=== PATIENT | male | born 1980 | race Caucasian/White ===

== ENCOUNTER 2023-07-19 09:03 | Emergency (ER) | payer OTHER, SELFPAY ==
[2023-07-19] VITALS (40 sets, daily range): BP systolic 93–175; BP diastolic 67–119; PULSE 104–135; RESP 4–31; TEMP 36.6; O2SAT 96–120; BMI 36.6
--- NOTE | 2023-07-19 09:22 | XR_ITS ---
[facility] [id number] Patient Name: ADRIENNE BOWMAN MRN: [id number] date: 1980 Sex: M Assigned Patient Location: ER Current Patient Location: ED.MAIN Accession/Order Number: [id number] Exam Date: 07/19/2023 09:48 Report Date: 07/19/2023 10:01 At the request of: NESTOR RICHMOND Procedure: XR chest 1V EXAM: XR chest 1V HISTORY: Tachycardia COMPARISON: None TECHNIQUE: AP view the chest was obtained with portable technique at 0944 hours. FINDINGS: Heart and mediastinal contours are unremarkable in appearance. No acute infiltrate or consolidations are seen. No obvious pneumothorax. Slight convexity of the mid dorsal spine to the right. XR/XR chest 1V IMPRESSION: No acute process seen in the chest. Electronically authenticated by: ISABELLA JUDD Date: 07/19/2023 10:01
--- NOTE | 2023-07-19 09:22 | ECG_ITS ---
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
--- NOTE | 2023-07-19 09:29 | ED.ALCOHOL1 ---
HPI - Alcohol General Chief Complaint: Alcohol Stated Complaint: ALCOHOL WITHDRAWAL Time Seen by Provider: 07/19/23 09:05 Source: patient Mode of arrival: Wheelchair Limitations: no limitations History of Present Illness HPI narrative: 43-year-old male presents to ED for nausea vomiting and feeling shaky. He has been on a 5-day alcohol nelson. He drank last night and started vomiting last night. He feels like he might be going into withdrawal. He has not had fever or hematemesis. Related Data Previous Rx's Medication Instructions Recorded lorazepam 1 mg tablet (Ativan) 1 mg PO Q8H PRN alcohol withdrawal 07/19/23 5 days #14 tabs promethazine 25 mg tablet 25 mg PO Q6H PRN nausea and 07/19/23 vomiting #14 tabs Allergies Allergy/AdvReac Type Severity Reaction Status Date / Time Iodinated Contrast Media Allergy Unknown Verified 07/19/23 09:08 Review of Systems ROS Narrative A ten point review of systems is negative except as noted above. PFSH PFSH Social History Smoking status: Current every day smoker Exam Narrative Exam Narrative: Nurses note and vital signs reviewed and patient is not hypoxic. General: The patient appears no apparent respiratory distress. Skin: Warm, dry, no pallor noted. There is no rash noted. Head: Normocephalic, atraumatic Eye: Normal conjunctiva, no drainage Ears, Nose, Mouth, and Throat: oral mucosa is slightly dry Cardiovascular: Regular Rate and Rhythm, tachycardic Respiratory: Patient is in no distress, no accessory muscle use, lungs are clear to auscultation, no wheezing, rales or rhonchi Back: non-tender GI: Soft and nontender Musculoskeletal: The patient has no evidence of calf tenderness, no pitting edema, symmetrical pulses noted bilaterally Neurological: A&O x4, normal speech, minimal tremors Psychiatric: Cooperative Constitutional Vital Signs, click to edit/add: Last Vital Signs Temp 97.8 F 07/19/23 09:08 Pulse 114 H 07/19/23 12:50 Resp 15 07/19/23 12:50 BP 151/89 H 07/19/23 12:46 Pulse Ox 97 07/19/23 12:50 O2 Del Method Room Air 07/19/23 09:08 Course Vital Signs Vital signs: Vital Signs Temperature 97.8 F 07/19/23 09:08 Pulse Rate 121 H 07/19/23 09:08 Respiratory Rate 14 07/19/23 09:08 Blood Pressure 132/87 07/19/23 09:08 Pulse Oximetry 98 07/19/23 09:08 Oxygen Delivery Method Room Air 07/19/23 09:08 Temperature 97.8 F 07/19/23 09:08 Pulse Rate 114 H 07/19/23 12:50 Respiratory Rate 15 07/19/23 12:50 Blood Pressure 151/89 H 07/19/23 12:46 Pulse Oximetry 97 07/19/23 12:50 Oxygen Delivery Method Room Air 07/19/23 09:08 MDM - Alcohol MDM Narrative Medical decision making narrative: The patient presented with mild alcohol withdrawal. He was given IV fluids and IV Ativan and Zofran. Blood work is nonspecific. He is able to be discharged home. At this point I do not feel that he needs to be admitted to the hospital. Treatment diagnosis and follow-up were discussed with the patient. Heart rate has come down with IV fluids and Ativan. Differential Diagnosis Differential diagnosis: Likely alcohol intoxication and alcohol withdrawal syndrome Lab Data Attestation: I reviewed the patient's lab results. Labs: Lab Results 07/19/23 07/19/23 Range/Units 09:39 10:50 WBC 13.3 H (4.0-11.0) 10^3/uL RBC 5.34 (4.70-6.10) 10^6/uL Hgb 17.5 (14.0-18.0) g/dL Hct 48.9 (42.0-54.0) % MCV 91.6 (80.0-94.0) fL MCH 32.8 (25.9-34.0) pg MCHC 35.8 H (29.9-35.2) g/dL RDW 12.1 (11.0-15.0) % Plt Count 307 (150-450) 10^3/uL MPV 8.8 L (9.5-13.5) fL Neut % (Auto) 77.1 H (43.0-75.0) % Lymph % (Auto) 13.3 L (20.5-60.0) % [place] % (Auto) 6.3 (1.7-12.0) % Eos % (Auto) 1.5 (0.9-7.0) % Baso % (Auto) 1.4 (0.2-2.0) % Neut # (Auto) 10.2 H (1.4-6.5) 10^3/uL Lymph # (Auto) 1.8 (1.2-3.8) 10^3/uL [place] # (Auto) 0.8 (0.3-0.8) 10^3/uL Eos # (Auto) 0.2 (0.0-0.7) 10^3/uL Baso # (Auto) 0.2 H (0.0-0.1) 10^3/uL Abs Immat Gran (auto) 0.05 H (0.00-0.03) 10^3/uL Imm/Tot Granulo (auto) 0.4 (0.0-0.5) % Sodium 136 (136-145) mmol/L Potassium 4.6 (3.5-5.1) mmol/L Chloride 97 L (98-107) mmol/L Carbon Dioxide 25.8 (21.0-32.0) mmol/L Anion Gap 17.8 BUN 14.0 (7.0-18.0) mg/dL Creatinine 0.73 (0.70-1.30) mg/dL Est GFR ( Amer) >60 (>=60) Est GFR (Non-Af Amer) >60 (>=60) BUN/Creatinine Ratio 19.2 Glucose 288 H (74-106) mg/dL Calcium 9.2 (8.5-10.1) mg/dL Total Bilirubin 0.8 (0.2-1.0) mg/dL Direct Bilirubin 0.1 (0.0-0.2) mg/dL AST 37 (15-37) U/L ALT 43 (16-63) U/L Alkaline Phosphatase 98 (46-116) U/L Troponin I High Sens 11.3 (4.0-76.1) pg/mL Total Protein 7.9 (6.4-8.2) g/dL Albumin 3.8 (3.4-5.0) g/dL Globulin 4.1 g/dL Albumin/Globulin Ratio 0.9 Urine Color Yellow (YELLOW) Urine Clarity Clear (CLEAR) Urine pH 6.5 (5.0-9.0) Ur Specific [place] >=1.030 A (1.005-1.025) Urine Protein >=300 A (NEG/TRACE) mg/dL Urine Glucose (UA) 250 A (NEGATIVE) mg/dL Urine Ketones 15 A (NEGATIVE) mg/dL Urine Occult Blood Moderate A (NEGATIVE) Urine Nitrite Negative (NEGATIVE) Urine Bilirubin Negative (NEGATIVE) Urine Urobilinogen 1.0 (0.2-1.0) EU/dL Ur Leukocyte Esterase Negative (NEGATIVE) Urine RBC 10-20 A (0-2) #/HPF Urine WBC 2-5 A (NONE SEEN) #/HPF Ur Squamous Epith Cells Many A (NONE/RARE) #/LPF Urine Crystals None seen (None Seen) #/HPF Urine Bacteria Trace A (NONE SEEN) #/HPF Urine Casts None seen (NONE SEEN) #/LPF Urine Mucus Large A (NONE SEEN) Ethanol Quant 25 mg/dL Imaging Data Chest x-ray: Radiologist's impression: ITS Impressions Chest X-Ray 07/19/23 09:22 IMPRESSION: No acute process seen in the chest. Electronically authenticated by: ISABELLA JUDD Date: 07/19/2023 10:01 ECG Data Attestation: I personally reviewed and interpreted this ECG as follows: (EKG on my interpretation shows sinus rhythm with a rate of 121.) Discharge Plan Discharge Chief Complaint: Alcohol Clinical Impression: Alcohol withdrawal syndrome Patient Disposition: Home, Self-Care Time of Disposition Decision: 12:56 Condition: Good Mode of Transportation: Private Vehicle Prescriptions / Home Meds: New lorazepam [Ativan] 1 mg tablet 1 mg PO Q8H PRN (Reason: alcohol withdrawal) 5 Days Qty: 14 0RF promethazine 25 mg tablet 25 mg PO Q6H PRN (Reason: nausea and vomiting) Qty: 14 0RF Instructions: Abuse of Alcohol (ED), Alcohol Withdrawal (ED) Stand Alone Forms: Portal Instructions Referrals: Physician,Non-Staff, MD [Primary Care Provider] - 1 week
[2023-07-19] MEDS: 0.9 % SODIUM CHLORIDE 1,000 ML 1000 ML IV ×2 (09:42→11:19)
[2023-07-19] MEDS: LORAZEPAM 2 MG/ML 1 ML VIAL 1 MG IV ×2 (09:43→11:19)
[2023-07-19] MEDS: ONDANSETRON PF 4 MG/2 ML VIAL IV ×3 (09:43→12:44)
[2023-07-19 09:53] LABS: Basophils Absolute Auto 0.2 10^3/uL (0.0-0.1); Basophils Percent Auto 1.4 % (0.2-2.0); Eosinophils Absolute Auto 0.2 10^3/uL (0.0-0.7); Eosinophils Percent Auto 1.5 % (0.9-7.0); Hematocrit 48.9 % (42.0-54.0); Hemoglobin 17.5 g/dL (14.0-18.0); Immature Granulocytes Abs Auto 0.05 10^3/uL (0.00-0.03); Immature Granulocytes Pct Auto 0.4 % (0.0-0.5); Lymphocytes Absolute Auto 1.8 10^3/uL (1.2-3.8); Lymphocytes Percent Auto 13.3 % (20.5-60.0); Mean Corpuscular HGB Conc 35.8 g/dL (29.9-35.2); Mean Corpuscular Hemoglobin 32.8 pg (25.9-34.0); Mean Corpuscular Volume 91.6 fL (80.0-94.0); Mean Platelet Volume 8.8 fL (9.5-13.5); Monocytes Absolute Auto 0.8 10^3/uL (0.3-0.8); Monocytes Percent Auto 6.3 % (1.7-12.0); Neutrophils Absolute Auto 10.2 10^3/uL (1.4-6.5); Neutrophils Percent Auto 77.1 % (43.0-75.0); Platelet Count 307 10^3/uL (150-450); Red Blood Count 5.34 10^6/uL (4.70-6.10); Red Cell Distribution Width 12.1 % (11.0-15.0); White Blood Count 13.3 10^3/uL (4.0-11.0)
[2023-07-19 09:57] LABS: Anion Gap 17.8; BUN Creatinine Ratio 19.2; Calcium 9.2 mg/dL (8.5-10.1); Carbon Dioxide 25.8 mmol/L (21.0-32.0); Chloride 97 mmol/L (98-107); Estimated GFR (African America >60 (>=60); Estimated GFR (Non-African Ame >60 (>=60); Glucose 288 mg/dL (74-106); Potassium 4.6 mmol/L (3.5-5.1); Sodium 136 mmol/L (136-145)
[2023-07-19] MEDS: NICOTINE 21 MG PATCH.TD24 TD (10:04)
[2023-07-19 10:07] LABS: Alanine Aminotransferase 43 U/L (16-63); Albumin Globulin Ratio 0.9; Albumin Level 3.8 g/dL (3.4-5.0); Alkaline Phosphatase 98 U/L (46-116); Aspartate Amino Transferase 37 U/L (15-37); Bilirubin Direct 0.1 mg/dL (0.0-0.2); Bilirubin Total 0.8 mg/dL (0.2-1.0); Globulin 4.1 g/dL; Total Protein 7.9 g/dL (6.4-8.2); Troponin I High Sensitivity 11.3 pg/mL (4.0-76.1)
[2023-07-19 10:22] LABS: Ethanol 25 mg/dL
[2023-07-19 11:12] LABS: Bilirubin Urine NEGATIVE (NEGATIVE); Blood Urine MODERATE (NEGATIVE); Clarity Urine CLEAR (CLEAR); Color Urine YELLOW (YELLOW); Glucose Urine UA 250 mg/dL (NEGATIVE); Ketones Urine 15 mg/dL (NEGATIVE); Leukocyte Esterase Urine NEGATIVE (NEGATIVE); Nitrite Urine NEGATIVE (NEGATIVE); Protein Urine >=300 mg/dL (NEG/TRACE); Specific Gravity Urine >=1.030 (1.005-1.025); pH Urine 6.5 (5.0-9.0)
[2023-07-19 11:26] LABS: Bacteria Urine TRACE #/HPF (NONE SEEN); Mucus Urine LARGE (NONE SEEN); Squamous Epithelial Cell Urine MANY #/LPF (NONE/RARE)
[2023-07-19 11:27] LABS: Cast Seen? NONE SEEN #/LPF (NONE SEEN); Crystals Seen? None Seen #/HPF (None Seen)
== END 2023-07-19 13:06 | disposition home or self-care (01) ==
PROVIDERS: Emergency Provider Emergency Medicine
DX: F10.239 Alcohol dependence with withdrawal, unspecified (principal); Y90.1 Blood alcohol level of 20-39 mg/100 ml; F17.210 Nicotine dependence, cigarettes, uncomplicated
CPT/HCPCS: 36415; 71045; 80048; 80076; 80320; 81001; 84484; 85025; 93005; 96361; 96374; 96375; 96376; 99285; J2060; J2405

== ENCOUNTER 2023-10-28 12:41 | Emergency (ER) | payer OTHER, SELFPAY ==
[2023-10-28] VITALS (29 sets, daily range): BP systolic 98–169; BP diastolic 62–110; PULSE 107–124; TEMP 37.1; O2SAT 92–100; BMI 37.3
--- NOTE | 2023-10-28 13:18 | ED_ITS ---
HPI - Alcohol General Chief Complaint: Alcohol Stated Complaint: general weakness Time Seen by Provider: 10/28/23 13:10 Source: patient Mode of arrival: Wheelchair Limitations: physical limitation History of Present Illness HPI narrative: This patient was brought to the hospital today by his family member. They are no longer present in the left. He lives in [place] but he does not like that hospital so he came to this facility. He is requesting help for his alcoholism. He has been through multiple multiple multiple rehab and detox programs in the past. Most recently he was at [facility] in [place] approximately 1 month ago he also has comorbidities including pulmonary disease cardiac arrhythmia diabetes. He says when he goes drinking he does not take any other medications. He says he drinks approximately half a gallon of vodka a day. He says he had approximately one half of 1/5 since 9 AM this morning. He says he occasionally uses marijuana. He is no longer using opiates. He says he was on benzos when he is at [facility] approximately a month ago. He says he is on disability because of a spinal cord problem. Related Data Previous Rx's ?Medication ?Instructions ?Recorded lorazepam 1 mg tablet (Ativan) 1 mg PO Q8H PRN alcohol withdrawal 07/19/23 5 days #14 tabs promethazine 25 mg tablet 25 mg PO Q6H PRN nausea and 07/19/23 vomiting #14 tabs Allergies Allergy/AdvReac Type Severity Reaction Status Date / Time Iodinated Contrast Media Allergy Unknown Verified 10/28/23 12:53 PFSH PFS Social History Smoking status: Current every day smoker Exam Constitutional Vital Signs, click to edit/add: Last Vital Signs Temp 98.8 F 10/28/23 12:48 Pulse 124 H 10/28/23 12:48 Resp 20 10/28/23 12:48 BP 129/99 H 10/28/23 12:48 Pulse Ox 94 L 10/28/23 12:48 O2 Del Method Room Air 10/28/23 12:48 Course Vital Signs Vital signs: Vital Signs Temperature 98.8 F 10/28/23 12:48 Pulse Rate 124 H 10/28/23 12:48 Respiratory Rate 20 10/28/23 12:48 Blood Pressure 129/99 H 10/28/23 12:48 Pulse Oximetry 94 L 10/28/23 12:48 Oxygen Delivery Method Room Air 10/28/23 12:48 Temperature 98.8 F 10/28/23 12:48 Pulse Rate 124 H 10/28/23 12:48 Respiratory Rate 20 10/28/23 12:48 Blood Pressure 129/99 H 10/28/23 12:48 Pulse Oximetry 94 L 10/28/23 12:48 Oxygen Delivery Method Room Air 10/28/23 12:48 Discharge Plan Discharge Chief Complaint: Alcohol Prescriptions / Home Meds: No Action lorazepam [Ativan] 1 mg tablet 1 mg PO Q8H PRN (Reason: alcohol withdrawal) 5 Days Qty: 14 0RF promethazine 25 mg tablet 25 mg PO Q6H PRN (Reason: nausea and vomiting) Qty: 14 0RF Print Language: Greenlandic Referrals: Physician,Non-Staff, MD [Primary Care Provider] - 1 week
--- NOTE | 2023-10-28 13:20 | ECG_ITS ---
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
[2023-10-28 13:43] LABS: Basophils Absolute Auto 0.1 10^3/uL (0.0-0.1); Basophils Percent Auto 1.4 % (0.2-2.0); Eosinophils Absolute Auto 0.5 10^3/uL (0.0-0.7); Eosinophils Percent Auto 5.4 % (0.9-7.0); Hematocrit 48.3 % (42.0-54.0); Hemoglobin 16.7 g/dL (14.0-18.0); Immature Granulocytes Abs Auto 0.02 10^3/uL (0.00-0.03); Immature Granulocytes Pct Auto 0.2 % (0.0-0.5); Lymphocytes Absolute Auto 2.2 10^3/uL (1.2-3.8); Lymphocytes Percent Auto 23.9 % (20.5-60.0); Mean Corpuscular HGB Conc 34.6 g/dL (29.9-35.2); Mean Corpuscular Hemoglobin 32.4 pg (25.9-34.0); Mean Corpuscular Volume 93.8 fL (80.0-94.0); Mean Platelet Volume 8.3 fL (9.5-13.5); Monocytes Absolute Auto 0.6 10^3/uL (0.3-0.8); Neutrophils Absolute Auto 5.7 10^3/uL (1.4-6.5); Neutrophils Percent Auto 62.1 % (43.0-75.0); Platelet Count 187 10^3/uL (150-450); Red Blood Count 5.15 10^6/uL (4.70-6.10); Red Cell Distribution Width 12.3 % (11.0-15.0); White Blood Count 9.2 10^3/uL (4.0-11.0)
[2023-10-28] MEDS: LORAZEPAM 1 MG TABLET 2 MG PO ×2 (13:47→18:46)
[2023-10-28] MEDS: THIAMINE HCL 200 MG/2 ML VIAL 100 MG IM (13:47)
[2023-10-28] MEDS: 0.9 % SODIUM CHLORIDE 1,000 ML 999 ML IV (13:47)
[2023-10-28 14:03] LABS: INR 0.97; Prothrombin Time 10.3 sec (9.0-11.6)
[2023-10-28 14:07] LABS: Alanine Aminotransferase 54 U/L (16-63); Albumin Globulin Ratio 0.9; Albumin Level 3.4 g/dL (3.4-5.0); Alkaline Phosphatase 115 U/L (46-116); Anion Gap 18.2; Aspartate Amino Transferase 40 U/L (15-37); BUN Creatinine Ratio 11.9; Bilirubin Total 0.5 mg/dL (0.2-1.0); Calcium 8.9 mg/dL (8.5-10.1); Carbon Dioxide 26.4 mmol/L (21.0-32.0); Chloride 100 mmol/L (98-107); Estimated GFR (African America >60 (>=60); Estimated GFR (Non-African Ame >60 (>=60); Globulin 3.6 g/dL; Glucose 210 mg/dL (74-106); Magnesium 1.5 mg/dL (1.8-2.4); Phosphorus 3.7 mg/dL (2.6-4.7); Potassium 3.6 mmol/L (3.5-5.1); Sodium 141 mmol/L (136-145)
[2023-10-28 14:31] LABS: Ethanol 338 mg/dL
[2023-10-28 14:43] LABS: Amphetamine Screen Urine NEGATIVE (NEGATIVE); Barbiturates Screen Urine NEGATIVE (NEGATIVE); Benzodiazepines Screen Urine NEGATIVE (NEGATIVE); Buprenorphine Screen Urine NEGATIVE (NEGATIVE); Cannabinoid Screen Urine POSITIVE (NEGATIVE); Cocaine Screen Urine NEGATIVE (NEGATIVE); Methadone Screen Urine NEGATIVE (NEGATIVE); Methamphetamines Screen Urine NEGATIVE (NEGATIVE); Opiate Screen Urine NEGATIVE (NEGATIVE); Oxycodone Screen Urine NEGATIVE (NEGATIVE); Phencyclidine Screen Urine NEGATIVE (NEGATIVE); Tricyclic Antidepressant Urine NEGATIVE (NEGATIVE)
--- NOTE | 2023-10-28 16:55 | ECG_ITS ---
[facility] Test Date: 2023-10-28 Pat Name: ADRIENNE BOWMAN Department: Room: - Gender: Male Beverage Manager: : 1980 Requested By: [id number] Order Number: [id number] Reading MD: CHERYL DUMONT Measurements Intervals [place] Rate: 108 P: 61 ND: 170 QRS: 47 QRSD: 84 T: 51 QT: 330 QTc: 394 Interpretive Statements 1120 Sinus tachycardia 8102 Low QRS voltage in chest leads 9140 abnormal rhythm ECG Compared to ECG 10/28/2023 12:58:23 No significant changes Electronically Signed On 10-28-2023 20:04:30 EDT by CHERYL DUMONT
[2023-10-28] MEDS: METOPROLOL TARTRATE 5 MG/5 ML VIAL IVP (18:46)
[2023-10-28 19:09] LABS: Ethanol 201 mg/dL
--- NOTE | 2023-10-28 19:28 | ED.ALCOHOL1 ---
HPI - Alcohol General Chief Complaint: Alcohol Stated Complaint: general weakness Time Seen by Provider: 10/28/23 13:10 Source: patient Mode of arrival: Wheelchair Limitations: physical limitation History of Present Illness HPI narrative: This 43-year-old male was signed out to me at shift change pending repeat alcohol. He has a history of alcohol abuse and has been accepted to a detox center in [place] however his alcohol had to be under 0.2 in order for him to be transferred. His alcohol was redrawn at 7 PM and is now 201. He has been tachycardic but has a history of tachycardia. He received Ativan in the emergency department and is not in acute alcohol withdrawal or experiencing delirium tremens. He will be released with a family member to go to the detox unit at this time. Related Data Previous Rx's ?Medication ?Instructions ?Recorded lorazepam 1 mg tablet (Ativan) 1 mg PO Q8H PRN alcohol withdrawal 07/19/23 5 days #14 tabs promethazine 25 mg tablet 25 mg PO Q6H PRN nausea and 07/19/23 vomiting #14 tabs Allergies Allergy/AdvReac Type Severity Reaction Status Date / Time Iodinated Contrast Media Allergy Unknown Verified 10/28/23 12:53 PFSH PFSH Social History Smoking status: Current every day smoker Exam Constitutional Vital Signs, click to edit/add: Last Vital Signs Temp 98.8 F 10/28/23 12:48 Pulse 119 H 10/28/23 18:52 Resp 20 10/28/23 18:52 BP 143/110 H 10/28/23 18:52 Pulse Ox 98 10/28/23 18:52 O2 Del Method Room Air 10/28/23 14:24 Course Vital Signs Vital signs: Vital Signs Temperature 98.8 F 10/28/23 12:48 Pulse Rate 124 H 10/28/23 12:48 Respiratory Rate 20 10/28/23 12:48 Blood Pressure 129/99 H 10/28/23 12:48 Pulse Oximetry 94 L 10/28/23 12:48 Oxygen Delivery Method Room Air 10/28/23 12:48 Temperature 98.8 F 10/28/23 12:48 Pulse Rate 119 H 10/28/23 18:52 Respiratory Rate 20 10/28/23 18:52 Blood Pressure 143/110 H 10/28/23 18:52 Pulse Oximetry 98 10/28/23 18:52 Oxygen Delivery Method Room Air 10/28/23 14:24 MDM - Alcohol Lab Data Labs: Lab Results 10/28/23 10/28/23 10/28/23 Range/Units 13:35 13:45 18:56 WBC 9.2 (4.0-11.0) 10^3/uL RBC 5.15 (4.70-6.10) 10^6/uL Hgb 16.7 (14.0-18.0) g/dL Hct 48.3 (42.0-54.0) % MCV 93.8 (80.0-94.0) fL MCH 32.4 (25.9-34.0) pg MCHC 34.6 (29.9-35.2) g/dL RDW 12.3 (11.0-15.0) % Plt Count 187 (150-450) 10^3/uL MPV 8.3 L (9.5-13.5) fL Neut % (Auto) 62.1 (43.0-75.0) % Lymph % (Auto) 23.9 (20.5-60.0) % [place] % (Auto) 7.0 (1.7-12.0) % Eos % (Auto) 5.4 (0.9-7.0) % Baso % (Auto) 1.4 (0.2-2.0) % Neut # (Auto) 5.7 (1.4-6.5) 10^3/uL Lymph # (Auto) 2.2 (1.2-3.8) 10^3/uL [place] # (Auto) 0.6 (0.3-0.8) 10^3/uL Eos # (Auto) 0.5 (0.0-0.7) 10^3/uL Baso # (Auto) 0.1 (0.0-0.1) 10^3/uL Abs Immat Gran (auto) 0.02 (0.00-0.03) 10^3/uL Imm/Tot Granulo (auto) 0.2 (0.0-0.5) % PT 10.3 (9.0-11.6) sec INR 0.97 Sodium 141 (136-145) mmol/L Potassium 3.6 (3.5-5.1) mmol/L Chloride 100 (98-107) mmol/L Carbon Dioxide 26.4 (21.0-32.0) mmol/L Anion Gap 18.2 BUN 8.0 (7.0-18.0) mg/dL Creatinine 0.67 L (0.70-1.30) mg/dL Est GFR ( Amer) >60 (>=60) Est GFR (Non-Af Amer) >60 (>=60) BUN/Creatinine Ratio 11.9 Glucose 210 H (74-106) mg/dL Calcium 8.9 (8.5-10.1) mg/dL Phosphorus 3.7 (2.6-4.7) mg/dL Magnesium 1.5 L (1.8-2.4) mg/dL Total Bilirubin 0.5 (0.2-1.0) mg/dL AST 40 H (15-37) U/L ALT 54 (16-63) U/L Alkaline Phosphatase 115 (46-116) U/L Total Protein 7.0 (6.4-8.2) g/dL Albumin 3.4 (3.4-5.0) g/dL Globulin 3.6 g/dL Albumin/Globulin Ratio 0.9 Lipase 28.0 (16.0-77.0) U/L Urine Opiates Screen Negative (NEGATIVE) Ur Buprenorphine Scrn Negative (NEGATIVE) Ur Oxycodone Screen Negative (NEGATIVE) Urine Methadone Screen Negative (NEGATIVE) Ur Barbiturates Screen Negative (NEGATIVE) U Tricyclic Antidepress Negative (NEGATIVE) Ur Phencyclidine Scrn Negative (NEGATIVE) Ur Amphetamines Screen Negative (NEGATIVE) U Methamphetamines Scrn Negative (NEGATIVE) U Benzodiazepines Scrn Negative (NEGATIVE) Urine Cocaine Screen Negative (NEGATIVE) U Cannabinoids Screen Positive A (NEGATIVE) Ethanol Quant 338 201 mg/dL Discharge Plan Discharge Stand Alone Forms: Portal Instructions Chief Complaint: Alcohol Clinical Impression: Alcoholic intoxication Patient Disposition: Home, Self-Care Time of Disposition Decision: 19:27 Condition: Fair Prescriptions / Home Meds: No Action lorazepam [Ativan] 1 mg tablet 1 mg PO Q8H PRN (Reason: alcohol withdrawal) 5 Days Qty: 14 0RF promethazine 25 mg tablet 25 mg PO Q6H PRN (Reason: nausea and vomiting) Qty: 14 0RF Print Language: Kiswahili Instructions: Alcohol Intoxication (DC), Alcohol Use Disorder (ED) Referrals: Physician,Non-Staff, MD [Primary Care Provider] - 1 week
== END 2023-10-28 19:49 | disposition home or self-care (01) ==
PROVIDERS: Emergency Medicine Emergency Medical Services; Emergency Provider Emergency Medicine
DX: F10.129 Alcohol abuse with intoxication, unspecified (principal); Y90.8 Blood alcohol level of 240 mg/100 ml or more; R00.0 Tachycardia, unspecified; F17.210 Nicotine dependence, cigarettes, uncomplicated; E11.9 Type 2 diabetes mellitus without complications
CPT/HCPCS: 36415; 80053; 80307; 80320; 83690; 83735; 84100; 85025; 85610; 93005; 96372; 96374; 99285